=== PATIENT | male | born 2000 | race Caucasian/White ===

== ENCOUNTER 2023-04-28 13:17 | Emergency (ER) | payer OTHER ==
--- NOTE | 2023-04-28 14:35 | ED ---
General Adult HPI - General Source: patient, RN notes reviewed Mode of arrival: ambulatory Limitations: no limitations <Laxmi Zuleta - Last Filed: 04/28/23 14:41> - General Source: RN notes reviewed, old records reviewed Limitations: no limitations - History of Present Illness -: hour(s) Radiation: abdomen, periumbilical Severity scale (1-10): 7 Quality: sharp Consistency: intermittent Improves with: none Worsens with: none Associated Symptoms: nausea/vomiting Treatments Prior to Arrival: none <Lance Olivares - Last Filed: 05/05/23 19:25> - General Chief complaint: Abdominal Pain Stated complaint: possible hernia Time Seen by Provider: 04/28/23 14:34 - History of Present Illness Initial comments: 22 year old male presents to the emergency department for chief complaint of "umbilical hernia." He states that the pain is worse with bending over. He states that the pain is in his umbilical region and slightly to the left. Denies fever, chills. (Laxmi Zuleta) This is a 22-year-old male to the emergency department for evaluation of what he believes is umbilical hernia with history of known umbilical hernia. Umbilical pain and a significant bulge there which is improved here in the ER. Patient feels better laying down. No other complaints of travel show sick contacts no fevers no nausea no vomiting no diarrhea. No history of surgery (aLnce Olivares) - Related Data Home Medications Medication Instructions Recorded Confirmed Albuterol Sulfate [Ventolin HFA] 2 puff INHALATION RT-Q6H PRN 04/28/23 04/28/23 Allergies Allergy/AdvReac Type Severity Reaction Status Date / Time cephalexin [From Keflex] Allergy Rash/Hives Verified 04/28/23 15:55 Review of Systems ROS Other: All systems not noted in ROS Statement are negative. <Laxmi Zuleta - Last Filed: 04/28/23 14:41> ROS Other: All systems not noted in ROS Statement are negative. <Lance Olivares - Last Filed: 05/05/23 19:25> ROS Statement: Those systems with pertinent positive or pertinent negative responses have been documented in the HPI. Past Medical History Past Medical History: Asthma, Hypertension History of Any Multi-Drug Resistant Organisms: None Reported Past Surgical History: Tonsillectomy Past Psychological History: Anxiety Smoking Status: Vaper Past Alcohol Use History: Occasional Past Drug Use History: Marijuana <Laxmi Zuleta - Last Filed: 04/28/23 14:41> General Exam Limitations: no limitations <Laxmi Zuleta - Last Filed: 04/28/23 14:41> General appearance: alert, in no apparent distress Head exam: Present: atraumatic, normocephalic, normal inspection Eye exam: Present: normal appearance, PERRL, EOMI. Absent: scleral icterus, conjunctival injection, periorbital swelling ENT exam: Present: normal exam, mucous membranes moist Neck exam: Present: normal inspection. Absent: tenderness, meningismus, lymphadenopathy Respiratory exam: Present: normal lung sounds bilaterally. Absent: respiratory distress, wheezes, rales, rhonchi, stridor Cardiovascular Exam: Present: regular rate, normal rhythm, normal heart sounds. Absent: systolic murmur, diastolic murmur, rubs, gallop, clicks GI/Abdominal exam: Present: soft, normal bowel sounds. Absent: distended, tenderness, guarding, rebound, rigid Extremities exam: Present: normal inspection, full ROM, normal capillary refill. Absent: tenderness, pedal edema, joint swelling, calf tenderness Back exam: Present: normal inspection Neurological exam: Present: alert, oriented X3, CN II-XII intact Psychiatric exam: Present: normal affect, normal mood Skin exam: Present: warm, dry, intact, normal color. Absent: rash <Lance Olivares - Last Filed: 05/05/23 19:25> - General Exam Comments Initial Comments: Visual Physical Exam Vital signs reviewed General: Well-appearing, nontoxic, no acute distress. Head: Normocephalic, atraumatic Eyes: PERRLA, EOMI ENT: Airway patent Chest: Nonlabored breathing Skin: No visual rash, normal skin tone Neuro: Alert and oriented 3 Musculoskeletal: No gross abnormalities (Laxmi Zuleta) Course <Lance Olivares - Last Filed: 05/05/23 19:25> Vital Signs 04/28/23 04/28/23 13:18 16:38 Temperature 99.1 F 97.6 F Pulse Rate 109 H 96 Respiratory 18 20 Rate Blood Pressure 155/104 152/98 O2 Sat by Pulse 96 96 Oximetry - Reevaluation(s) Reevaluation #1: Medical record is reviewed (Lance Olivares) Reevaluation #2: Patient symptoms are unchanged (Lance Olivares) Reevaluation #3: Patient informed results and questions answered (Lance Olivares) Reevaluation #4: Was pt. sent in by a medical professional or institution (CLAYTON Ashby, COLLECTION CLERK, urgent care, hospital, or group home...) When possible be specific @ -no Did you speak to anyone other than the patient for history (EMS, parent, family, police, friend...)? What history was obtained from this source @ -no Did you review nursing and triage notes (agree or disagree)? Why? @ -agree Are old charts reviewed (outside hosp., previous admission, EMS record, old EKG, old radiological studies, urgent care reports/EKG's, group home records)? Report findings @ -yes Differential Diagnosis (chest pain, altered mental status, abdominal pain women, abdominal pain men, vaginal bleeding, weakness, fever, dyspnea, syncope, headache, dizziness, GI bleed, back pain, seizure, CVA, palpatations, mental health, musculoskeletal)? @ -prior EKG interpreted by me (3pts min.). @ -no X-rays interpreted by me (1pt min.). @ -yes negative for acute disease CT interpreted by me (1pt min.). @ -no U/S interpreted by me (1pt. min.). @ -no What testing was considered but not performed or refused? (CT, X-rays, U/S, labs)? Why? @ -none What meds were considered but not given or refused? Why? @ -none Did you discuss the management of the patient with other professionals (professionals i.e. CLAYTON Ashby, COLLECTION CLERK, lab, RT, psych nurse, director social, leather polisher, teacher, security officer, gearcase assembler)? Give summary @ -no Was smoking cessation discussed for >3mins.? @ -no Was critical care preformed (if so, how long)? @ -no Were there social determinants of health that impacted care today? How? (Homelessness, low income, unemployed, alcoholism, drug addiction, transportation, low edu. Level, literacy, decrease access to med. care, [facility], rehab)? @ -none Was there de-escalation of care discussed even if they declined (Discuss DNR or withdrawal of care, Hospice)? DNR status @ -no What co-morbidities impacted this encounter? (DM, HTN, Smoking, COPD, CAD, Cancer, CVA, ARF, Chemo, Hep., AIDS, mental health diagnosis, sleep apnea, morbid obesity)? @ -none Was patient admitted / discharged? Hospital course, mention meds given and route, prescriptions, significant lab abnormalities, going to OR and other pertinent info. @ - 22 male to the emergency department for evaluation known umbilical hernia pain. Patient's Abdominal pain IS NEGATIVE FOR OBSTRUCTION HAVING BOWEL MOVEMENTS PAIN IS CONTROLLED AND CAN BE DISCHARGED HOME Undiagnosed new problem with uncertain prognosis? @ -no Drug Therapy requiring intensive monitoring for toxicity (Heparin, Nitro, Insulin, Cardizem)? @ -no Were any procedures done? @ -no Diagnosis/symptom? @ -Umbilical hernia Acute, or Chronic, or Acute on Chronic? @ -Acute Uncomplicated (without systemic symptoms) or Complicated (systemic symptoms)? @ -Complicated Side effects of treatment? @ -no Exacerbation, Progression, or Severe Exacerbation? @ -exacerbation Poses a threat to life or bodily function? How? (Chest pain, [place], [place], pneumonia, PE, COPD, DKA, ARF, appy, cholecystitis, CVA, Diverticulitis, Homicidal, Suicidal, threat to staff... and all critical care pts) @ -no (Lance Olivares) Medical Decision Making <Laxmi Zuleta - Last Filed: 04/28/23 14:41> - Radiology Data Radiology results: report reviewed (X-ray KUB is negative for acute disease), image reviewed <Lance Olivares - Last Filed: 05/05/23 19:25> - Medical Decision Making Quick note preformed by Laxmi Zuleta PA-C (Laxmi Zuleta) 22 male to the emergency department for evaluation of significant abdominal pain with positive for umbilical hernia. Patient is no other acute findings here in the ER, pain is controlled. Patient has no need for urgent surgical evaluation can be discharged home (Lance Olivares) Disposition <Laxmi Zuleta - Last Filed: 04/28/23 14:41> Is patient prescribed a controlled substance at d/c from ED?: No Time of Disposition: 17:00 <Lance Olivares - Last Filed: 05/05/23 19:25> Clinical Impression: Umbilical hernia Disposition: HOME SELF-CARE Condition: Good Instructions (If sedation given, give patient instructions): Umbilical Hernia (ED) Referrals: Iveth Gomez MD [Primary Care Provider] - 1-2 days Sury Winchester MD [STAFF PHYSICIAN] - 1-2 days
[2023-04-28] MEDS ORDERED: ONDANSETRON ODT 4 MG TAB PO STA (15:56)
[2023-04-28] MEDS ORDERED: IBUPROFEN 600 MG TAB PO STA (15:56)
[2023-04-28] MEDS ORDERED: traMADol 50 MG TAB PO STA (15:56)
--- NOTE | 2023-04-28 16:15 | XR ---
EXAMINATION TYPE: XR KUB DATE OF EXAM: 04/28/2023 COMPARISON: NONE HISTORY: Pain TECHNIQUE: Single supine KUB image of the abdomen is obtained FINDINGS: Small bowel demonstrates no evidence for dilatation or air fluid levels. Gas and fecal material is seen in non-distended colon. No convincing evidence for pneumoperitoneum. No unusual calcifications. The lung bases are clear. The osseous structures are intact. IMPRESSION: 1. Overall nonobstructive bowel gas pattern.
[2023-04-28 17:05] VITALS: BP 152/98; PULSE 96; RESP 20; TEMP 97.6
== END 2023-04-28 17:28 | disposition home or self-care (01) ==
LOC: EC 13:17
DX: K42.9 Umbilical hernia without obstruction or gangrene (principal); I10 Essential (primary) hypertension; J45.909 Unspecified asthma, uncomplicated; F17.290 Nicotine dependence, other tobacco product, uncomplicated; F12.90 Cannabis use, unspecified, uncomplicated; Z79.899 Other long term (current) drug therapy; Z88.1 Allergy status to other antibiotic agents
CPT/HCPCS: 74018; 99284

== ENCOUNTER 2023-07-23 11:20 | Emergency (ER) | payer OTHER ==
[2023-07-23 11:46] VITALS: TEMP 98.3
[2023-07-23 11:55] LABS: Basophils % (A) 1 %; Eosinophils # (A) 0.1 k/uL (0-0.7); Eosinophils % (A) 2 %; HCT 47.8 % (39.0-53.0); HGB 16.2 gm/dL (13.0-17.5); Lymphocytes # (A) 0.9 k/uL (1.0-4.8); Lymphocytes % (A) 18 %; MCH 29.4 pg (25.0-35.0); MCHC 33.9 g/dL (31.0-37.0); MCV 86.8 fL (80.0-100.0); Mean Platelet Volume 10.2; Monocytes # (A) 0.4 k/uL (0-1.0); Monocytes % (A) 8 %; Neutrophils # (A) 3.3 k/uL (1.3-7.7); Neutrophils % (A) 69 %; Platelet Count 154 k/uL (150-450); RBC 5.51 m/uL (4.30-5.90); RDW 12.7 % (11.5-15.5); WBC 4.7 k/uL (3.8-10.6)
[2023-07-23] MEDS: ONDANSETRON 4 MG/2 ML VIAL IVP STA (11:56)
[2023-07-23] MEDS: PANTOPRAZOLE 40 MG/10 ML VIAL IVP STA (11:57)
[2023-07-23 12:17] LABS: ALT 30 U/L (4-49); AST 31 U/L (17-59); African American GFR (CKD) >90 (>60 ml/min/1.73 sqM); Albumin 4.7 g/dL (3.5-5.0); Alkaline Phosphatase 66 U/L (38-126); Anion Gap 11 mmol/L; Blood Urea Nitrogen 9 mg/dL (9-20); Calcium 9.6 mg/dL (8.4-10.2); Carbon Dioxide 25 mmol/L (22-30); Chloride 105 mmol/L (98-107); Glucose 105 mg/dL (74-99); Lipase 63 U/L (23-300); Non-African American GFR(CKD) >90 (>60 ml/min/1.73 sqM); Potassium 4.3 mmol/L (3.5-5.1); Sodium 141 mmol/L (137-145); Total Protein 7.3 g/dL (6.3-8.2)
--- NOTE | 2023-07-23 12:54 | CT ---
EXAMINATION: CT ABDOMEN AND PELVIS WITH IV CONTRAST DATE OF EXAMINATION: 07/23/2023. COMPARISON: None available. INDICATION: Pain. PROCEDURE: Axial CT of the abdomen and pelvis was performed with contrast and sagittal and coronal reformatted images were performed. CT dose lowering techniques were used, to include: automated expos ure control, adjustment for patient size, and/or use of iterative reconstruction. 100 mL of Isovue 30 0 was given intravenously. FINDINGS: LOWER CHEST : The visualized lung bases are clear. There are no pleural or pericardial effusions. ABDOMEN: Liver and Biliary system: Normal. Adrenal glands: Normal. Kidneys and ureters: Normal. Spleen: Normal. Pancreas: Normal. Gallbladder: Normal. Lymph nodes, Peritoneum and mesentery: There is no mesenteric or retroperitoneal lymphadenopathy. Gastrointestinal tract: There are no dilated loops of bowel or free intraperitoneal air. The appe ndix is normal. Aorta/IVC: No aortic aneurysm. IVC normal. Abdominal wall: Normal. PELVIS: Fluid: There is no free fluid in the pelvis. Lymph Nodes: There is no pelvic or inguinal lymphadenopathy.. Urinary bladder: Normal. BONES: There are no osseous destructive lesions.. ADDITIONAL SIGNIFICANT FINDINGS: None. IMPRESSION: No acute process within the abdomen or pelvis.
--- NOTE | 2023-07-23 13:10 | ED ---
General Adult HPI - General Chief complaint: GI Bleed Stated complaint: Hernia Time Seen by Provider: 07/23/23 11:29 Source: patient, RN notes reviewed Mode of arrival: ambulatory Limitations: no limitations - History of Present Illness Initial comments: 22-year-old male presents emergency department complaint of abdominal pain. Patient states that he has some mild discomfort in the left side. He states he had a bump to morning which did stay was slightly struggle to have a bowel movement states he had some discomfort. He states there was reddish colored blood and he denies any black stools. Denies any history of any GI disorders. He states he was told he had a umbilical hernia. Patient denies any fevers or chills no chest pain he does mention some nausea. - Related Data Home Medications Medication Instructions Recorded Confirmed Albuterol Sulfate [Ventolin HFA] 2 puff INHALATION RT-Q6H PRN 04/28/23 04/28/23 Allergies Allergy/AdvReac Type Severity Reaction Status Date / Time cephalexin [From Keflex] Allergy Rash/Hives Verified 07/23/23 12:31 Review of Systems ROS Statement: Those systems with pertinent positive or pertinent negative responses have been documented in the HPI. ROS Other: All systems not noted in ROS Statement are negative. Past Medical History Past Medical History: Asthma, Hypertension History of Any Multi-Drug Resistant Organisms: None Reported Past Surgical History: Tonsillectomy Past Psychological History: Anxiety Smoking Status: Vaper Past Alcohol Use History: Occasional Past Drug Use History: Marijuana General Exam Limitations: no limitations General appearance: alert, in no apparent distress Head exam: Present: atraumatic, normocephalic, normal inspection Eye exam: Present: normal appearance, PERRL, EOMI. Absent: scleral icterus, conjunctival injection, periorbital swelling Neck exam: Present: normal inspection, full ROM. Absent: tenderness, meningismus, lymphadenopathy Respiratory exam: Present: normal lung sounds bilaterally. Absent: respiratory distress, wheezes, rales, rhonchi, stridor Cardiovascular Exam: Present: normal rhythm, tachycardia, normal heart sounds. Absent: systolic murmur, diastolic murmur, rubs, gallop, clicks GI/Abdominal exam: Present: soft, tenderness, normal bowel sounds. Absent: distended, guarding, rebound, rigid Course Vital Signs 07/23/23 11:24 Temperature 98.3 F Pulse Rate 113 H Respiratory 18 Rate Blood Pressure 144/91 O2 Sat by Pulse 99 Oximetry Medical Decision Making - Medical Decision Making Was pt. sent in by a medical professional or institution (CLAYTON Ashby, CHOPPING MACHINE OPERATOR, urgent care, hospital, or [facility]...) When possible be specific @ -No Did you speak to anyone other than the patient for history (EMS, parent, family, police, friend...)? What history was obtained from this source @ -No Did you review nursing and triage notes (agree or disagree)? Why? @ -I reviewed and agree with nursing and triage notes Were old charts reviewed (outside hosp., previous admission, EMS record, old EKG, old radiological studies, urgent care reports/EKG's, [facility] records)? Report findings @ -No old charts were reviewed Differential Diagnosis (chest pain, altered mental status, abdominal pain women, abdominal pain men, vaginal bleeding, weakness, fever, dyspnea, syncope, headache, dizziness, GI bleed, back pain, seizure, CVA, palpatations, mental health, musculoskeletal)? @ -Differential Abdominal Pain Men: Appendicitis, cholecystitis, diverticulosis, ischemic bowel, pancreatitis, hepatitis, UTI, gastroenteritis, AAA, incarcerated hernia, bowel obstruction, constipation, inflammatory bowel, hepatitis, peptic ulcer disease, splenic infarction, perforated viscus, testicular torsion, this is not meant to be an all-inclusive list EKG interpreted by me (3pts min.). @ -[None X-rays interpreted by me (1pt min.). @ -None done CT interpreted by me (1pt min.). @ -CT abdomen pelvis showing no acute intra-abdominal process no inflammatory changes U/S interpreted by me (1pt. min.). @ -None done What testing was considered but not performed or refused? (CT, X-rays, U/S, labs)? Why? @ -None What meds were considered but not given or refused? Why? @ -None Did you discuss the management of the patient with other professionals (professionals i.e. CLAYTON Ashby, CHOPPING MACHINE OPERATOR, lab, RT, psych nurse, social media sr strategy manager, sales and marketing director, teacher, division officer weapons department, upper caser)? Give summary @ -No Was smoking cessation discussed for >3mins.? @ -No Was critical care preformed (if so, how long)? @ -No Were there social determinants of health that impacted care today? How? (Homelessness, low income, unemployed, alcoholism, drug addiction, transportation, low edu. Level, literacy, decrease access to med. care, [facility], rehab)? @ -No Was there de-escalation of care discussed even if they declined (Discuss DNR or withdrawal of care, Hospice)? DNR status @ -No What co-morbidities impacted this encounter? (DM, HTN, Smoking, COPD, CAD, Cancer, CVA, ARF, Chemo, Hep., AIDS, mental health diagnosis, sleep apnea, morbid obesity)? @ -None Was patient admitted / discharged? Hospital course, mention meds given and route, prescriptions, significant lab abnormalities, going to OR and other pertinent info. @ -Discharge patient had some rectal bleeding after bowel movement. This may be related to internal hemorrhoids. Patient will follow-up with GI return parameters are discussed. Hemoglobin within normal limits. Undiagnosed new problem with uncertain prognosis? @ -No Drug Therapy requiring intensive monitoring for toxicity (Heparin, Nitro, Insulin, Cardizem)? @ -No Were any procedures done? @ -No Diagnosis/symptom? @ -[Rectal bleeding Acute, or Chronic, or Acute on Chronic? @ -Acute Uncomplicated (without systemic symptoms) or Complicated (systemic symptoms)? @ -Uncomplicated Side effects of treatment? @ -[No Exacerbation, Progression, or Severe Exacerbation? @ -No Poses a threat to life or bodily function? How? (Chest pain, [place], [place], pneumonia, PE, COPD, DKA, ARF, appy, cholecystitis, CVA, Diverticulitis, Homicidal, Suicidal, threat to staff... and all critical care pts) @ -No - Lab Data Result diagrams: 07/23/23 11:48 07/23/23 11:48 Lab Results 07/23/23 07/23/23 Range/Units 11:48 11:48 WBC 4.7 (3.8-10.6) k/uL RBC 5.51 (4.30-5.90) m/uL Hgb 16.2 (13.0-17.5) gm/dL Hct 47.8 (39.0-53.0) % MCV 86.8 (80.0-100.0) fL MCH 29.4 (25.0-35.0) pg MCHC 33.9 (31.0-37.0) g/dL RDW 12.7 (11.5-15.5) % Plt Count 154 (150-450) k/uL MPV 10.2 Neutrophils % 69 % Lymphocytes % 18 % Monocytes % 8 % Eosinophils % 2 % Basophils % 1 % Neutrophils # 3.3 (1.3-7.7) k/uL Lymphocytes # 0.9 L (1.0-4.8) k/uL Monocytes # 0.4 (0-1.0) k/uL Eosinophils # 0.1 (0-0.7) k/uL Basophils # 0.0 (0-0.2) k/uL Sodium 141 (137-145) mmol/L Potassium 4.3 (3.5-5.1) mmol/L Chloride 105 (98-107) mmol/L Carbon Dioxide 25 (22-30) mmol/L Anion Gap 11 mmol/L BUN 9 (9-20) mg/dL Creatinine 0.59 L (0.66-1.25) mg/dL Est GFR (CKD-EPI)AfAm >90 (>60 ml/min/1.73 sqM) Est GFR (CKD-EPI)NonAf >90 (>60 ml/min/1.73 sqM) Glucose 105 H (74-99) mg/dL Calcium 9.6 (8.4-10.2) mg/dL Total Bilirubin 1.0 (0.2-1.3) mg/dL AST 31 (17-59) U/L ALT 30 (4-49) U/L Alkaline Phosphatase 66 (38-126) U/L Total Protein 7.3 (6.3-8.2) g/dL Albumin 4.7 (3.5-5.0) g/dL Lipase 63 (23-300) U/L Disposition Clinical Impression: Rectal bleeding Disposition: HOME SELF-CARE Condition: Stable Instructions (If sedation given, give patient instructions): Gastrointestinal Bleeding (ED) Additional Instructions: Please return to the Emergency Department if symptoms worsen or any other concerns. Is patient prescribed a controlled substance at d/c from ED?: No Referrals: Iveth Gomez MD [Primary Care Provider] - 1-2 days Shanta Bender MD [STAFF PHYSICIAN] - 1-2 days Moisés Hamilton MD [Medical Doctor] - 1-2 days Time of Disposition: 13:09
[2023-07-23 14:01] VITALS: BP 151/99; PULSE 71; RESP 16
== END 2023-07-23 13:40 | disposition home or self-care (01) ==
LOC: EC 11:20
DX: K62.5 Hemorrhage of anus and rectum (principal); I10 Essential (primary) hypertension; J45.909 Unspecified asthma, uncomplicated; F12.90 Cannabis use, unspecified, uncomplicated; F17.290 Nicotine dependence, other tobacco product, uncomplicated; Z86.59 Personal history of other mental and behavioral disorders; Z88.8 Allergy status to other drugs, medicaments and biological substances
CPT/HCPCS: 36415; 80053; 83690; 85025; 74177; 99285; 96374; 96375; J2405; C9113; Q9967